=== PATIENT | female | born 1955 | race Hispanic/Latino ===

== ENCOUNTER 2018-02-01 14:42 | Outpatient (CLI) | payer OTHER | END 2018-02-01 14:43 | disposition home or self-care (01) | LOC: LABHHL 14:42 | PROVIDERS: ATTEND Specialist | DX: N63.20 Unspecified lump in the left breast, unspecified quadrant (principal) | CPT/HCPCS: 88305; 88342; 88361 ==

== ENCOUNTER 2018-03-16 06:48 | Day surgery (SDC) | payer BC, OTHER ==
--- NOTE | 2018-03-16 08:08 | Operative Report ---
Operative Report Operative Report: Date of Service: March 1609-25 Preoperative diagnosis: Left breast cancer of the upper outer quadrant Postoperative diagnosis: Same Procedure: Left needle localization partial mastectomy of the upper outer quadrant and SLNB Surgeon: Heidi Poe MD Anesthesia: General Findings: Left wire and clip present within radiograph specimen; x2 SLNs Complications: None EBL: Minimal Disposition: PACU in good condition Indications for operative procedure: This is a 62 year old lady with a personal history of right breast cancer diagnosed over 20 years ago with newly diagnosed left breast cancer of the upper outer quadrant, Stage I [id number] ER/SD/Her-2 positive. Recommendations are to proceed with breast conservation. Genetic testing with no significant gene mutation. Adjuvant chemotherapy will be determined based upon final pathology. She understands the role of adjuvant radiation therapy. She wished to proceed with the above procedure. Procedure in detail: The patient was taken to radiology for wire placement for localization known area of cancer. Patient was then taken to the operating room. Gen. anesthesia was administered. The left nipple was injected with radioisotope. The left breast and axilla were prepped and draped in the normal sterile operative fashion. The wire was identified. Timeout was performed. Gamma probe was inserted into the axilla. The area of hot spot was identified. A left axillary incision was made with a 15 blade knife with dissection taken down to the subcutaneous tissues. The axillary fascia was opened with the Bovie cautery. Two SLNS were identified. All remaining counts were less than 10% of the highest count. Lymph nodes were sent to pathology for permanent processing. Hemostasis was obtained in the left axillary cavity. Axillary cavity was appropriately irrigated and suctioned. Hemostasis was noted. Axillary fascia was approximated and closed using interrupted 3-0 Vicryl and the skin brought together and closed using a running 4-0 Monocryl followed by skin affix. Attention was then taken towards the left breast. Lateral breast incision was made with a 15 blade knife and dissection taken down to subcutaneous tissues. First began raising of the lateral flap with removal of the wire from the skin with dissection taken down to the pectoralis muscle, followed by raising of the medial flap, superior flap and inferior flap with all flaps taken down to the pectoralis muscle. The breast area of concern was appropriately removed posteriorly from the pectoralis muscle with the aid of the Bovie cautery. The wire was not encountered. Specimen was marked and then sent to pathology and radiology; radiograph speciment with wire, clip and mass present. Breast cavity was irrigated and hemostasis was obtained. The posterior deep breast tissues were approximated and closed using interrupted 3-0 Vicryl. The subcutaneous tissues were approximated and closed using interrupted 3-0 Vicryl followed by closing of the skin with a running 4-0 Monocryl and skin affix. The patient tolerated surgery very well and she was awaken from anesthesia without any complication and transported to PACU in good condition.
[2018-03-16] MEDS ORDERED: XYLOCAINE 1% 20 mL ONE (08:17)
--- NOTE | 2018-03-16 08:18 | Short Stay Summary ---
Short Stay Documentation Date of service: 03/16/18 - History H&P: obtained from office - Allergies and Medications Current Medications: Allergies Penicillins Allergy (Verified 03/15/18 15:44) Unknown A CHILD Home Medications Medication Instructions Recorded Confirmed Last Taken Type No Known Home Medications [No 03/15/18 03/15/18 Unknown History Reported Home Medications] - Brief post op/procedure progress note Date of procedure: 03/16/18 Pre-op diagnosis: Left breast cancer of the upper outer quadrant Post-op diagnosis: same Procedure: Left needle localization partial mastectomy with SLNB Anesthesia: GETA (the) Findings: Wire and clip present within radiograph specimen; x2SLNs Surgeon: ALBARO AGUILAR Estimated blood loss: minimal Pathology: list (left partial mastectomy and SLNB) Specimen disposition: to lab Condition: stable - Disposition Condition at discharge: Good Disposition: DC-01 TO HOME OR SELFCARE Short Stay Discharge Plan Activity: other (no heavy lifting) Diet: regular Wound: other (keep incision clean and dry; may shower in 24 hours; no baths, pools or lakes; do not rub or scrub incision) Follow up with: XAVI WEAVER MD [Primary Care Provider] - 7 Days ALBARO AGUILAR MD [Staff Physician] - 7 Days Prescriptions: HYDROcodone/APAP 5-325 [[place] 5/325] 1 each PO Q6HR PRN #30 tablet PRN Reason: Pain
--- NOTE | 2018-03-16 08:24 | Anesthesia Day of Surgery ---
Anesthesia Day of Surgery - Day of Surgery Patient Examined: Yes Patient H&P Reviewed: Yes Patient is NPO: Yes
--- NOTE | 2018-03-16 08:24 | Anesthesia Consultation ---
Anesthesia Consult and Med Hx Date of service: 03/16/18 - Airway Anesthetic Teeth Evaluation: Good ROM Head & Neck: Adequate Mental/Hyoid Distance: Adequate Mallampati Class: Class II Intubation Access Assessment: Probably Good - Pulmonary Exam CTA: Yes - Cardiac Exam Cardiac Exam: RRR - Pre-Operative Health Status ASA Pre-Surgery Classification: ASA3 Proposed Anesthetic Plan: General - Central Nervous System Hx Psychiatric Problems: No - Other Systems Hx Alcohol Use: Yes (SOCIAL) Hx Substance Use: No Hx Cancer: Yes
[2018-03-16] MEDS ORDERED: ZOFRAN IV PRN (09:00)
[2018-03-16] MEDS ORDERED: VERSED IV NR (09:00)
[2018-03-16] MEDS ORDERED: XYLOCAINE 1% 20 mL INFILTRATI NR (09:00)
[2018-03-16] MEDS ORDERED: DILAUDID IV PRN (09:00)
[2018-03-16] MEDS ORDERED: LACTATED RINGERS 1,000 ML IV SCH (09:00)
[2018-03-16] MEDS ORDERED: DECADRON ONE (09:12)
[2018-03-16] MEDS ORDERED: SUBLIMAZE ONE ×2 (09:12→09:47)
[2018-03-16] MEDS ORDERED: MARCAINE 0.5% 30 ML INFILTRATI ONE (09:24)
[2018-03-16] MEDS ORDERED: DIPRIVAN 10 MG/ML IV ONE (09:47)
[2018-03-16] MEDS ORDERED: XYLOCAINE MPF 2% ONE (09:47)
[2018-03-16] MEDS ORDERED: ZOFRAN ONE (09:47)
[2018-03-16] MEDS ORDERED: REGLAN ONE (09:47)
[2018-03-16] MEDS ORDERED: VANCOMYCIN PHARMACY TO DOSE IV SCH (10:00)
[2018-03-16] MEDS ORDERED: VANCOMYCIN/NS 1 GM/250 ML 1 GM/250 ML BAG IV SCH (10:00)
--- NOTE | 2018-03-16 10:16 | Mammography Report ---
NEEDLE LOCALIZATION AND HOOKWIRE PLACEMENT LEFT BREAST:03/16/18 CLINICAL: Left breast cancer. COMPARISON: 02/09/18 FINDINGS: Using mammographic guidance, 1% lidocaine local anesthesia and sterile technique, a 5.0-cm Brown needle with a hookwire was placed from a lateral approach to localize a mass with an adjacent biopsy clip. Two views demonstrated satisfactory targeting. The hookwire was deployed and the needle was removed. The patient tolerated the procedure well and there were no apparent complications. IMPRESSION: Uncomplicated hookwire placement left breast.
[2018-03-16] MEDS ORDERED: WATER FOR IRRIG STERILE IR ONE (12:14)
--- NOTE | 2018-03-16 12:15 | Mammography Report ---
SPECIMEN RADIOGRAPH LEFT BREAST: 03/16/18 06:48:00 CLINICAL: Surgical excision of a known cancer. FINDINGS: The targeted mass and adjacent clip with a hookwire are identified within the specimen. IMPRESSION: Excision of the targeted lesion.
[2018-03-16 13:29] VITALS: BP 135/68
--- NOTE | 2018-03-16 16:13 | Post Anesthesia Evaluation ---
- Post Anesthesia Evaluation Patient Participated: Yes Airway Patent: Yes Stable Respiratory Function: Yes Nausea/Vomiting: No Temp > 96.8F: No Pain Manageable: Yes Adequeate Hydration: Yes Anesthesia Complications: No
== END 2018-03-16 13:53 | disposition home or self-care (01) ==
LOC: OR 06:48
PROVIDERS: ATTEND Surgery
DX: C50.412 Malignant neoplasm of upper-outer quadrant of left female breast (principal); Z17.0 Estrogen receptor positive status [ER+]; Z79.899 Other long term (current) drug therapy; Z88.0 Allergy status to penicillin; Z72.89 Other problems related to lifestyle; Z90.11 Acquired absence of right breast and nipple; Z85.3 Personal history of malignant neoplasm of breast; Z98.890 Other specified postprocedural states; Z80.3 Family history of malignant neoplasm of breast; Z80.0 Family history of malignant neoplasm of digestive organs
CPT/HCPCS: 19281; 19302; 38525; 64450; 76098; 78800; 88307; 88342; A9541; J1100; J2250; J2405; J2704; J2765; J3010; J3370; J7120; 88333